=== PATIENT | female | born 1950 | race Caucasian/White ===

== ENCOUNTER → 2019-07-27 15:13 | Outpatient (CLI) | payer MEDICARE, BC, SELFPAY ==
--- NOTE | ~2019-07-27 | XR_ITS ---
EXAMINATION: XR lumbar spine 2-3V DATE: 07/27/2019 15:32 INDICATION: Radiculopathy, lumbar region, low back pain TECHNIQUE: Anteroposterior and lateral views of the lumbar spine, and cone-down lateral view of the l umbosacral junction were obtained. COMPARISON: None. FINDINGS: There is no fracture, dislocation, or subluxation. The vertebral body heights and alignment are normal. There is moderate loss of intervertebral disc space height at L2-3 and mild loss through out the remainder of the lumbar spine. Small degenerative osteophytes project from the anterior endpl ates of multiple vertebral bodies. A moderate volume of colonic stool is present. IMPRESSION: 1. Mild lumbar spondylosis without acute findings. Reviewed, dictated and finalized at location A. 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
== END ==
PROVIDERS: PCP Family Medicine; Visit Provider Physician Assistant
DX: M47.26 Other spondylosis with radiculopathy, lumbar region (principal)
CPT/HCPCS: 72100

== ENCOUNTER 2020-03-24 15:51 | Outpatient (CLI) | payer MEDICARE, BC, SELFPAY ==
--- NOTE | ~2020-03-24 | MM_ITS ---
EXAMINATION: MM screening jes BI w opal HISTORY: Screening TECHNIQUE: Craniocaudal and mediolateral oblique 3-D tomosynthesis images were obtained and synthetic 2-D images were generated. CAD analysis was submitted and interpreted. COMPARISON: Comparison to multiple prior studies sequentially, with oldest reviewed study dated 09/2013. BREAST PARENCHYMAL COMPOSITION: There are scattered areas of fibroglandular density. FINDINGS: There is no evidence of suspicious mass, calcification, or architectural distortion to sugg est malignancy in either breast. There has been no suspicious interval change. IMPRESSION: 1. No mammographic evidence of malignancy. 2. Recommend routine screening mammography in one year. 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
== END 2020-03-24 15:52 | disposition home or self-care (01) ==
PROVIDERS: PCP Family Medicine; Visit Provider Family Medicine
DX: Z12.31 Encounter for screening mammogram for malignant neoplasm of breast (principal)
CPT/HCPCS: 77063; 77067

== ENCOUNTER 2020-12-09 09:04 | Outpatient (CLI) | payer MEDICARE, BC, SELFPAY ==
--- NOTE | ~2020-12-09 | DEXA_ITS ---
Bone Density Report Name: Joycelyn Galenao Age: 70 Sex: Female Ethnicity: White Date of : 1950 Indication: postmenopausal; height loss; hysterectomy; Referring Provider: MICKEY ALEXIS Study: Bone densitometry was performed. Exam Date: December 09, 2020 Accession number: [id number] Bone Density: Region BMD T-score Z-score Classification AP Spine (L1-L4) 1.162 1.0 3.3 Normal Femoral Neck (Left) 0.795 -0.5 1.5 Normal Total Hip (Left) 0.991 0.4 2.1 Normal Total Hip Bilateral Avg 0.982 0.4 2.0 Normal Femoral Neck (Right) 0.812 -0.3 1.6 Normal Total Hip (Right) 0.973 0.3 1.9 Normal World Health Organization criteria for BMD impression classify patients as: Normal (T-score at or above -1.0), Osteopenia (T-score between -1.0 and -2.5), or Osteoporosis (T-score at or below -2.5). 10-year Fracture Risk: FRAX not reported because: All T-scores for Spine Total, Hip Total, Femoral Neck at or above -1.0 Previous Exams: Region Exam Age BMD T-score BMD Change BMD Change Date g/cm2 vs Baseline vs Previous AP Spine(L1-L4) 12/09/2020 70 1.162 1.0 -0.094(-7.5%)# 0.028(2.5%)# 11/18/2013 63 1.133 0.8 -0.122(-9.7%)# -0.090(-7.4%)# 04/24/2010 60 1.224 1.6 -0.032(-2.5%)* -0.032(-2.5%)* 12/31/2005 55 1.255 1.9 Total Hip(Left) 12/09/2020 70 0.991 0.4 -0.075(-7.0%)# -0.057(-5.4%)# 11/18/2013 63 1.048 0.9 -0.018(-1.7%)# 0.055(5.6%)# 04/24/2010 60 0.993 0.4 -0.073(-6.9%)* -0.073(-6.9%)* 12/31/2005 55 1.066 1.0 Total Hip(Right) 12/09/2020 70 0.973 0.3 -0.095(-8.9%)# -0.096(-8.9%)# 11/18/2013 63 1.068 1.0 0.001(0.1%)# 0.045(4.4%)# 04/24/2010 60 1.023 0.7 -0.044(-4.1%)* -0.044(-4.1%)* 12/31/2005 55 1.067 1.0 *Denotes significance at 95% confidence level, LSC for AP Spine = 0.022 g/cm2, LSC for Total Hip = 0.027 g/cm2 Clinical Information Provided by Patient: Has used the following medications: Vitamin D Has the following medical conditions: Hysterectomy Patient maximum height was 66 Menopause Age: 53 Onset of menses at age 10 Number of children 4 Impression: The patient has normal bone mass. No significant bone loss was observed. Discussion: BONE DENSITY IS ABOVE THE MINIMUM DESIRABLE LEVEL AT ALL SKELETAL SITES TESTED. This patient?s bone mineral density is above the minimum desirable level (T-score -1.0 or better) at all sites measured. The patient should follow a healthful li
== END 2020-12-09 09:05 | disposition home or self-care (01) ==
LOC: ANHIMG 09:05
PROVIDERS: PCP Family Medicine; Visit Provider Family Medicine
DX: Z78.0 Asymptomatic menopausal state (principal); E78.2 Mixed hyperlipidemia; I10 Essential (primary) hypertension; R73.03 Prediabetes; Z11.59 Encounter for screening for other viral diseases
CPT/HCPCS: 77080

== ENCOUNTER 2021-03-28 15:01 | Outpatient (CLI) | payer MEDICARE, BC, SELFPAY ==
--- NOTE | ~2021-03-28 | MM_ITS ---
EXAMINATION: MM screening jes BI w opal HISTORY: Screening TECHNIQUE: Craniocaudal and mediolateral oblique 3-D tomosynthesis images were obtained and synthetic 2-D images were generated. CAD analysis was submitted and interpreted. COMPARISON: Comparison to multiple prior studies sequentially, with oldest reviewed study dated 12/08. BREAST PARENCHYMAL COMPOSITION: There are scattered areas of fibroglandular density. FINDINGS: There is no evidence of suspicious mass, calcification, or architectural distortion to sugg est malignancy in either breast. There has been no suspicious interval change. IMPRESSION: 1. No mammographic evidence of malignancy. 2. Recommend routine screening mammography in one year. 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
== END 2021-03-28 15:02 | disposition home or self-care (01) ==
LOC: ANHIMG 15:03
PROVIDERS: PCP Family Medicine; Visit Provider Family Medicine
DX: Z12.31 Encounter for screening mammogram for malignant neoplasm of breast (principal)
CPT/HCPCS: 77063; 77067

== ENCOUNTER 2022-05-12 21:41 | Emergency (ER) | payer MEDICARE, OTHER, SELFPAY ==
--- NOTE | ~2022-05-12 | CT_ITS ---
EXAMINATION: CT facial & cervical spine wo DATE: 05/12/2022 23:56 INDICATION: Fall. Head and neck injury. Laceration to eyebrow. TECHNIQUE: Computed tomography (CT) of the facial bones and maxillofacial region and cervical spine w as performed without intravenous contrast. Automated exposure control and iterative reconstruction te chnique were employed. Exam dose: 403.46 mGy-cm total exam DLP. COMPARISON: None. FINDINGS: Mild left periorbital and facial soft tissue swelling. The frontozygomatic sutures, orbital rims and coffey, nasal bones, maxillary bones and zygomatic arches are intact. Normal alignment at th e temporomandibular joints. No mandibular fracture. Periapical abscess of an upper right maxillary molar Mastoid air cells and middle and inner ear apparatus are normal. There is reversal cervical curvature which may be due to muscle spasm. C1 and C2 are normally aligned and the odontoid process is intact. No fracture or dislocation or locked facet or prevertebral soft tissue swelling is detected. There is moderate degenerative disc disease at C4-5 and moderately severe degenerative disc disease a nd mild posterior spurring at C5-6. Prominent uncovertebral joint spurring at C5-6 and to a lesser extent C4-5. IMPRESSION: Mild left periorbital and facial soft tissue swelling; no facial fracture Reversal cervical curvature and cervical spondylosis; no fracture or dislocation or locked facet of t he cervical spine Reviewed, dictated and finalized at Location A. 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
--- NOTE | ~2022-05-12 | CT_ITS ---
EXAMINATION: CT brain wo con DATE: 05/12/2022 23:56 INDICATION: Patient fell and struck head, with laceration to eyebrow. Patient taking daily aspirin. TECHNIQUE: Computed tomography (CT) of the head was performed without intravenous contrast. The mA wa s adjusted according to patient size. Iterative reconstruction technique was employed. Exam dose: 60 5.33 mGy-cm total exam DLP. COMPARISON: 07/07/2011 CT brain FINDINGS: Bilateral vertebral artery, basilar artery and carotid siphon internal carotid artery calci fications. There is nonspecific diminished attenuation of the cerebral white matter, likely due to ch ronic small vessel ischemic changes. No intracranial mass lesion or hemorrhage or cerebrovascular accident is detected. No midline shift o r mass effect. There is age consistent mild cerebral and cerebellar volume loss. No subdural or epidu ral hematoma. No fracture or bone destruction of the cranial vault. Normal aeration of included paranasal sinuses a nd mastoid air cells. IMPRESSION: No acute intracranial abnormality Cerebral atherosclerosis and chronic small vessel ischemic changes of the cerebral white matter Reviewed, dictated and finalized at Location A. Reviewed, dictated and finalized at location A. 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
[2022-05-12 21:43] VITALS: BP 158/75; PULSE 100; RESP 16; TEMP 37; O2SAT 98
--- NOTE | 2022-05-12 23:40 | ED.WOUNDLAC ---
HPI - Wound/Laceration General Chief Complaint: Wound/Laceration Stated Complaint: laceration Time Seen by Provider: 05/12/22 22:27 Source: patient Mode of arrival: ambulatory Limitations: no limitations History of Present Illness HPI narrative: Patient is a 72 y/o female who presents to the ED with c/o head injury. Patient reports she missed a step earlier tonight and fell, hitting her head against the concrete step. She did sustain a small laceration above her left eyebrow. She did not lose consciousness. She denies any other pain or injury. No neck pain, back pain, extremity pain. No prodromal sx's prior to the fall. Denies dizziness, lightheadedness, vision changes currently. Takes ASA 81mg daily, no other blood thinners. Tetanus status unknown. Related Data Home Medications Medication Instructions Recorded Confirmed hydrochlorothiazide 12.5 mg tablet 12.5 mg PO DAILY 10/26/21 10/26/21 Allergies Allergy/AdvReac Type Severity Reaction Status Date / Time indomethacin Allergy Mild BLACKS OUT Verified 05/12/22 21:53 levofloxacin Allergy Unknown unknown to Verified 05/12/22 21:53 pt ezetimibe [From Zetia] AdvReac Severe muscle Verified 05/12/22 21:53 aches atorvastatin AdvReac myalgia/art Verified 05/12/22 21:53 hralgia rosuvastatin AdvReac muscle Verified 05/12/22 21:53 aches, joint pains Review of Systems Review of Systems: CONSTITUTIONAL: Denies fever, chills, or sweats. EYES: Denies visual changes. CARDIOVASCULAR: Denies chest pain. RESPIRATORY: Denies dyspnea. GASTROINTESTINAL: Denies abdominal pain, nausea, vomiting, or diarrhea. MUSCULOSKELETAL: Denies back pain, joint pain, or myalgia. SKIN: Reports laceration to L eyebrow. NEUROLOGIC: Reports HI. Denies LOC, dizziness, lightheadedness, headache, numbness, or weakness. All systems reviewed & are unremarkable except as noted in HPI and below PMFSH Past Medical History Medical History (Updated 05/13/22 @ 01:19 by Nancy Reina PA-C) Essential hypertension Mixed hyperlipidemia Obesity Prediabetes Spinal stenosis, cervical region Surgical History Surgical History History of hysterectomy with bilateral oophorectomy Family History Family History Sibling Diabetes mellitus Hypertension Family history of pancreatic cancer Family history of malignant neoplasm of breast Social History Social History Alcohol intake: current Substance use: never Exam Narrative: GENERAL: Well appearing, well-nourished, non-toxic, in no acute distress. HEAD: Normocephalic. Small contusion to L periorbital region with 2.5cm laceration to L outer eyebrow, bleeding controlled. EYES: PERRL/EOMI, conjunctivae clear bilaterally. No nystagmus. NECK: Supple. No adenopathy, no masses. No midline spinal tenderness. RESPIRATORY: Airway patent, respirations nonlabored. Clear to auscultation bilaterally, no rales, rhonchi, wheezing. CARDIOVASCULAR: Regular rate and rhythm without murmurs, rubs, or gallops. Peripheral pulses 2+ and equal bilaterally. MUSCULOSKELETAL: Moves all extremities. Strength/ROM intact without gross deformities. No midline thoracic or lumbar spinal tenderness. SKIN: Warm, dry, normal color. No rashes. Small abrasion to L anterior knee, no tenderness. NEURO: A&O X3. Speech clear. Follows commands. CN II-XII intact. Sensation grossly intact. No ataxic movements. No focal deficits. PSYCHIATRIC: Appropriate mood and affect. Normal interaction. Course Vital Signs Vital signs: Vital Signs Temperature 98.6 F 05/12/22 21:43 Pulse Rate 100 05/12/22 21:43 Respiratory Rate 16 05/12/22 21:43 Blood Pressure 158/75 H 05/12/22 21:43 Pulse Oximetry 98 05/12/22 21:43 Oxygen Delivery Room Air 05/12/22 21:43 Temperature 98.6 F
[2022-05-13] MEDS: TETANUS,DIPHTHERIA,AC PERTUSSIS ADULT (0.5 ML) BOOSTRIX IM (00:14)
[2022-05-13 01:18] VITALS: BP 131/66; PULSE 96; RESP 16; O2SAT 98
== END 2022-05-13 01:28 | disposition home or self-care (01) ==
PROVIDERS: Emergency Provider Physician Assistant; PCP Family Medicine
DX: S01.112A Laceration without foreign body of left eyelid and periocular area, initial encounter (principal); S09.90XA Unspecified injury of head, initial encounter; Z23 Encounter for immunization; I10 Essential (primary) hypertension; E78.2 Mixed hyperlipidemia; R73.03 Prediabetes; E66.01 Morbid (severe) obesity due to excess calories; Z68.28 Body mass index [BMI] 28.0-28.9, adult; Z90.710 Acquired absence of both cervix and uterus; Z90.722 Acquired absence of ovaries, bilateral; I67.2 Cerebral atherosclerosis; W10.9XXA Fall (on) (from) unspecified stairs and steps, initial encounter
CPT/HCPCS: 12011; 70450; 70486; 72125; 90471; 90715; 99284

== ENCOUNTER 2022-08-22 08:39 | Outpatient (CLI) | payer MEDICARE, OTHER, SELFPAY ==
--- NOTE | ~2022-08-22 | MM_ITS ---
EXAMINATION: MM screening jes BI w opal HISTORY: Screening mammogram, family history of breast cancer in her sister. TECHNIQUE: Craniocaudal and mediolateral oblique 3-D tomosynthesis images were obtained and synthetic 2-D images were generated. CAD analysis was submitted and interpreted. COMPARISON: 03/28/2021, 03/24/2020, 03/06/2019 BREAST PARENCHYMAL COMPOSITION: There are scattered areas of fibroglandular density. FINDINGS: No suspicious mass, calcification, or architectural distortion are identified in either leanne ast to suggest malignancy. There has been no suspicious interval change. IMPRESSION: 1. No mammographic evidence of malignancy. 2. Recommend routine screening mammography in one year. 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
== END 2022-08-22 08:40 | disposition home or self-care (01) ==
LOC: ANHIMG 08:41
PROVIDERS: PCP Family Medicine; Visit Provider Family Medicine
DX: Z12.31 Encounter for screening mammogram for malignant neoplasm of breast (principal)
CPT/HCPCS: 77063; 77067

== ENCOUNTER 2022-10-10 01:09 | Day surgery (SDC) | payer MEDICARE, OTHER, SELFPAY ==
[2022-09-28 14:53] VITALS: BMI 28.3
--- NOTE | 2022-10-09 12:02 | P.PNAN_ITS ---
Anes - Initial Pre Proc Eval Procedure: Operation Date: 10/10/22 09:30 Proposed Procedures p Colonoscopy - Norbert Meléndez MD Date/Time: 10/09/22 12:02 Surgeon: Norbert Meléndez MD Pre Op Diagnosis: hx colon polyps Patient Data Age: 72 Gender: F Height: 1.68 m Weight: 79.5 kg Allergies Allergy/AdvReac Type Severity Reaction Status Date / Time indomethacin Allergy Mild BLACKS OUT Verified 10/10/22 08:11 levofloxacin Allergy Unknown unknown to Verified 10/10/22 08:11 pt ezetimibe [From Zetia] AdvReac Severe muscle Verified 10/10/22 08:11 aches atorvastatin AdvReac myalgia/art Verified 10/10/22 08:11 hralgia rosuvastatin AdvReac muscle Verified 10/10/22 08:11 aches, joint pains Home Medications Medication Instructions Recorded Confirmed Type amlodipine 10 mg tablet See Rx Instructions .Route 05/17/22 09/28/22 Rx .COMPLEX #90 tabs hydrochlorothiazide 12.5 mg tablet 12.5 mg PO DAILY #90 tabs 05/17/22 09/28/22 Rx ramipril 10 mg capsule 10 mg PO DAILY #90 caps 05/22/22 09/28/22 Rx Aspirin Child 81 mg PO DAILY 09/28/22 09/28/22 History Patient hx anesthesia problems: none Family hx anesthesia problems: none Results Review: All pre-operative results and documents have been reviewed as part of the pre- operative evaluation. [facility] Past Medical History Medical History Essential hypertension Mixed hyperlipidemia Obesity Prediabetes Spinal stenosis, cervical region Surgical History Surgical History History of hysterectomy with bilateral oophorectomy Family History Family History Sibling Diabetes mellitus Hypertension Family history of pancreatic cancer Family history of malignant neoplasm of breast Social History Social History Smoking status: Never smoker Alcohol intake: unknown Substance use: never Substance use type: does not use Living arrangements: with family Spiritual care concerns: No Anes - Eval Final PreProcedure Day of Procedure 10/09/22 12:02 Patient weight: overweight Heart: regular rate and rhythm Lungs: clear to auscultation Airway: Mallampati scale class II Neurological: alert and oriented Last oral intake: >/= 8 hours ASA classification: II Emergent: no Anesthetic plan: proceed Anesthesia type and monitoring: general GIVS and standard monitoring Results Review: All pre-operative results and documents have been reviewed as part of the pre- operative evaluation. Informed Consent: The patient's anesthetic plan and its attendant risks and benefits were discussed with the patient/family/POA. Questions were solicited and answers provided to the satisfaction of the patient/family/POA.
--- NOTE | 2022-10-09 15:31 | PM.HPGS ---
History of Present Illness History of Present Illness Consent: Risks, benefits, and alternatives have been discussed and questions answered. Patient agrees to proceed with procedure. Chief complaint: hx colon polyps Narrative: Joycelyn Galeano is a 72 year old female with history of colon polyps. Her last colonoscopy was 7 years ago Review of Systems Review of Systems: All systems reviewed & are unremarkable except as noted in HPI and below PMFSH Past Medical History Medical History Essential hypertension Mixed hyperlipidemia Obesity Prediabetes Spinal stenosis, cervical region Surgical History Surgical History History of hysterectomy with bilateral oophorectomy Family History Family History Sibling Diabetes mellitus Hypertension Family history of pancreatic cancer Family history of malignant neoplasm of breast Social History Social History Smoking status: Never smoker Alcohol intake: unknown Substance use: never Substance use type: does not use Living arrangements: with family Spiritual care concerns: No Meds Home Medications and Allergies Home Medications Medication Instructions Recorded Confirmed Type amlodipine 10 mg tablet See Rx Instructions .Route 05/17/22 09/28/22 Rx .COMPLEX #90 tabs hydrochlorothiazide 12.5 mg tablet 12.5 mg PO DAILY #90 tabs 05/17/22 09/28/22 Rx ramipril 10 mg capsule 10 mg PO DAILY #90 caps 05/22/22 09/28/22 Rx Aspirin Child 81 mg PO DAILY 09/28/22 09/28/22 History Allergies Allergy/AdvReac Type Severity Reaction Status Date / Time indomethacin Allergy Mild BLACKS OUT Verified 10/10/22 08:11 levofloxacin Allergy Unknown unknown to Verified 10/10/22 08:11 pt ezetimibe [From Zetia] AdvReac Severe muscle Verified 10/10/22 08:11 aches atorvastatin AdvReac myalgia/art Verified 10/10/22 08:11 hralgia rosuvastatin AdvReac muscle Verified 10/10/22 08:11 aches, joint pains Exam Const: General: alert Orientation/consciousness: patient oriented x3 Resp: Auscultation: clear to auscultation bilaterally Cardio: Rhythm: regular rhythm GI: GI Palp: Yes Soft to palpation and No Tenderness to palpation present (GI) Neuro: General: patient oriented x3 Assessment and Plan Assessment and plan (1) Colon cancer screening: Code(s): Z12.11 - Encounter for screening for malignant neoplasm of colon Status: Acute Assessment and Plan: Colonoscopy with possible biopsy or polypectomy or cautery or injection of substances.
[2022-10-10 08:12] VITALS: BP 151/71; PULSE 92; RESP 18; TEMP 36.2; O2SAT 98
[2022-10-10] MEDS: LACTATED RINGERS 1,000 ML 150 ML IV CONT (08:34)
[2022-10-10 09:37] VITALS: BP 105/62; PULSE 84; RESP 21; O2SAT 100
[2022-10-10 09:47] VITALS: BP 122/77; PULSE 88; RESP 27; O2SAT 99
[2022-10-10 09:57] VITALS: BP 131/80; PULSE 73; RESP 23; O2SAT 99
== END 2022-10-10 10:13 | disposition home or self-care (01) ==
PROVIDERS: PCP Family Medicine; Visit Provider Internal Medicine Gastroenterology
PROC: 0DJD8ZZ Inspection of Lower Intestinal Tract, Via Natural or Artificial Opening Endoscopic (ICD-10-PCS; CPT 45378; principal; 2022-10-10 09:30)
DX: Z12.11 Encounter for screening for malignant neoplasm of colon (principal); K57.30 Diverticulosis of large intestine without perforation or abscess without bleeding; D12.4 Benign neoplasm of descending colon; I10 Essential (primary) hypertension; E78.2 Mixed hyperlipidemia; R73.03 Prediabetes
CPT/HCPCS: 45385; 88305; J2704; J7120

== ENCOUNTER 2023-11-21 09:23 | Outpatient (CLI) | payer MEDICARE, OTHER, SELFPAY ==
--- NOTE | ~2023-11-21 | MM_ITS ---
EXAMINATION: MM screening jes BI w opal HISTORY: Screening TECHNIQUE: Craniocaudal and mediolateral oblique 3-D tomosynthesis images were obtained and synthetic 2-D images were generated. CAD analysis was submitted and interpreted. COMPARISON: Comparison to multiple prior studies sequentially, with oldest reviewed study dated 02/26. BREAST PARENCHYMAL COMPOSITION: There are scattered areas of fibroglandular density. FINDINGS: There is no evidence of suspicious mass, calcification, or architectural distortion to sugg est malignancy in either breast. There has been no suspicious interval change. IMPRESSION: 1. No mammographic evidence of malignancy. 2. Recommend routine screening mammography in one year. BI-RADS Category 1: Negative Reviewed, dictated and finalized at location B.
== END 2023-11-21 09:24 | disposition home or self-care (01) ==
PROVIDERS: PCP Family Medicine; Visit Provider Family Medicine
DX: Z12.31 Encounter for screening mammogram for malignant neoplasm of breast (principal)
CPT/HCPCS: 77063; 77067

== ENCOUNTER 2023-12-14 09:16 | Emergency (ER) | payer MEDICARE, OTHER, SELFPAY ==
[2023-12-14 09:24] VITALS: BP 169/71; PULSE 103; RESP 16; TEMP 36.9; O2SAT 98
--- NOTE | 2023-12-14 09:36 | ED.EYEPROB ---
HPI - Eye Problem General Chief complaint: Eye Problems Stated complaint: EYE REDNESS Time Seen by Provider: 12/14/23 09:27 Source: patient and RN notes reviewed Mode of arrival: ambulatory Limitations: no limitations History of Present Illness HPI Narrative: Patient presents today complaining of right upper eyelid redness and swelling that started this morning. Reports some tearing from her eye, but no drainage. Denies vision changes or photophobia. She has tried some ibuprofen without relief. States she is concerned that this may be attributed to possible sinus infection as she had some sinus symptoms in the last several days and yesterday had some pain in her right maxillary sinus area. Related Data Home Medications Medication Instructions Recorded Confirmed Aspirin Child 81 mg PO DAILY 09/28/22 12/14/23 Allergies Allergy/AdvReac Type Severity Reaction Status Date / Time indomethacin Allergy Mild BLACKS OUT Verified 12/14/23 09:22 levofloxacin Allergy Unknown unknown to Verified 12/14/23 09:22 pt ezetimibe [From Zetia] AdvReac Severe muscle Verified 12/14/23 09:22 aches atorvastatin AdvReac myalgia/art Verified 12/14/23 09:22 hralgia rosuvastatin AdvReac muscle Verified 12/14/23 09:22 aches, joint pains Review of Systems Review of Systems: CONSTITUTIONAL: Denies body aches, fever, chills, or sweats. EYES: Denies visual changes, redness, or discharge.+ redness and swelling in the right upper eyelid ENT: Denies rhinorrhea, congestion, sore throat, or otalgia. CARDIOVASCULAR: Denies chest pain, palpitations, or edema. RESPIRATORY: Denies cough or dyspnea. GASTROINTESTINAL: Denies abdominal pain, nausea, vomiting, or diarrhea. GENITOURINARY: Denies dysuria or hematuria. SKIN: Denies rash, itching, or wounds. MUSCULOSKELETAL: Denies back pain, joint pain, or myalgia. NEUROLOGIC: Denies headache, numbness, tingling, or weakness. PSYCH: Denies depression or anxiety. [facility] Past Medical History Medical History Essential hypertension Mixed hyperlipidemia Obesity Prediabetes Spinal stenosis, cervical region Surgical History Surgical History H/O cataract removal with insertion of prosthetic lens Jun and Jul 2022 History of hysterectomy with bilateral oophorectomy Family History Family History Sibling Diabetes mellitus Hypertension Family history of pancreatic cancer Family history of malignant neoplasm of breast Social History Social History Smoking status: Never smoker Alcohol intake: current Alcohol use details: maybe once a month Substance use: never Substance use type: does not use Living arrangements: with family Spiritual care concerns: No Comments At time of signature, I have reviewed and agree with nursing past medical, surgical, social and family history unless otherwise noted. Please see nursing chart for further information. There is no relevant family history pertinent to the presenting complaint Exam Narrative: GENERAL: Well-appearing, well-nourished, and in no acute distress. HEAD: Normocephalic, atraumatic. EYES: EOMI. PERRL. Left eye normal. Right eye: Mild to moderate swelling to the right upper eyelid at the lash border. No tenderness. No pustule noted internally or externally to suggest stye. No crusting or flaking of the eyelashes. No drainage noted from the eye. Conjunctiva normal. ENT: Mucous membranes pink and moist. Nares clear. No rhinorrhea. NECK: Normal AROM. CHEST: No respiratory distress. EXTREMITIES: Normal range of motion. No edema. SKIN: Warm, dry, no rash. Capillary refill normal. Normal skin turgor. NEURO: No focal deficits. Alert and oriented x3. Gait steady. PS
== END 2023-12-14 09:42 | disposition home or self-care (01) ==
PROVIDERS: Emergency Provider Nurse Practitioner; PCP Family Medicine
DX: H01.001 Unspecified blepharitis right upper eyelid (principal); I10 Essential (primary) hypertension; E78.2 Mixed hyperlipidemia; R73.03 Prediabetes; E66.9 Obesity, unspecified; Z68.28 Body mass index [BMI] 28.0-28.9, adult; M48.02 Spinal stenosis, cervical region
CPT/HCPCS: 99213; G0463

== ENCOUNTER 2023-12-25 08:42 | Outpatient (CLI) | payer MEDICARE, BC, SELFPAY ==
--- NOTE | ~2023-12-25 | US_ITS ---
EXAMINATION: US soft tissue LE LT DATE: 12/25/2023 08:57 INDICATION: Left knee pain with possible cyst at the popliteal fossa. TECHNIQUE: Multiple grayscale and Doppler ultrasound images of the popliteal fossa of the left knee w ere obtained. COMPARISON: None FINDINGS: Left popliteal vein is patent and compressible. Vascular flow is seen within the adjacent normal nii mi, noncompressible left popliteal artery. There is a small Colon's cyst the left popliteal fossa me asuring 1.5 x 1.1 x 0.9 cm. IMPRESSION: 1. Small Colon's cyst at the left popliteal fossa. Reviewed, dictated and finalized at location A.
== END 2023-12-25 08:43 ==
LOC: GOSHIMG 08:43
PROVIDERS: PCP Family Medicine; Visit Provider Family Medicine
DX: M71.22 Synovial cyst of popliteal space [Baker], left knee (principal)
CPT/HCPCS: 76882

== ENCOUNTER 2024-10-29 13:38 | Outpatient (CLI) | payer MEDICARE, OTHER, SELFPAY ==
--- NOTE | ~2024-10-29 | XR_ITS ---
EXAMINATION: XR chest 2V 10/29/2024 13:56 INDICATION: Chronic cough PROCEDURE: 2 view chest COMPARISON: 02/01/2010 FINDINGS: The lungs are clear. The cardiomediastinal silhouette is within normal limits. There are no pleural effusions. There is no pneumothorax suspected. IMPRESSION: 1: NO ACUTE CARDIOPULMONARY DISEASE. Reviewed, dictated and finalized at location A.
== END 2024-10-29 13:39 | disposition home or self-care (01) ==
LOC: GOSHIMG 13:39
PROVIDERS: PCP Family Medicine; Visit Provider Family Medicine
DX: R05.3 Chronic cough (principal)
CPT/HCPCS: 71046

== ENCOUNTER 2024-11-02 11:24 | Outpatient (CLI) | payer MEDICARE, OTHER, SELFPAY ==
--- NOTE | ~2024-11-02 | US_ITS ---
EXAM: RENAL ULTRASOUND HISTORY: N28.1 - Cyst of kidney, acquired COMPARISON: None FINDINGS: RIGHT KIDNEY: 8.9 x 4.1 x 4.3 cm. The parenchyma of the right kidney is unremarkable in echogenicity. No hydronephrosis or renal calculi. LEFT KIDNEY: 13.3 x 5.4 x 6.1 cm inclusive of a large left renal cyst. No hydronephrosis or renal calculi. A single rounded avascular anechoic focus is present within the upper pole of the left kidney measuri ng 10.3 x 10.1 x 14.1 cm (anterior to posterior x medial to lateral x cranial to caudal dimension). The remainder of the renal parenchyma of the left kidney is otherwise unremarkable in echogenicity. BLADDER: Bilateral ureteral jets are identified. IMPRESSION: No hydronephrosis or renal calculi. Large simple cyst within the left kidney, as detailed above. Reviewed, dictated and finalized at location A.
== END 2024-11-02 11:25 | disposition home or self-care (01) ==
LOC: GOSHIMG 11:24
PROVIDERS: PCP Family Medicine; Visit Provider Family Medicine
DX: N28.1 Cyst of kidney, acquired (principal)
CPT/HCPCS: 76775

== ENCOUNTER 2024-12-15 14:32 | Outpatient (CLI) | payer MEDICARE, OTHER, SELFPAY ==
--- NOTE | ~2024-12-15 | MM_ITS ---
EXAMINATION: MM screening jes BI w opal HISTORY: Screening mammogram, family history of breast cancer in her sister. TECHNIQUE: Craniocaudal and mediolateral oblique 3-D tomosynthesis images were obtained and synthetic 2-D images were generated. CAD analysis was submitted and interpreted. COMPARISON: 11/21/2023, 09/03/2022, 03/28/2021 BREAST PARENCHYMAL COMPOSITION:Not Dense. The breasts are almost entirely fatty FINDINGS: No suspicious mass, calcification, or architectural distortion are identified in either leanne ast to suggest malignancy. There has been no suspicious interval change. IMPRESSION: No mammographic evidence of malignancy. Recommend routine screening mammography in one year. BI-RADS Category 1: Negative Reviewed, dictated and finalized at location .
== END 2024-12-15 14:33 | disposition home or self-care (01) ==
PROVIDERS: PCP Family Medicine; Visit Provider Family Medicine
DX: Z12.31 Encounter for screening mammogram for malignant neoplasm of breast (principal)
CPT/HCPCS: 77063; 77067